=== PATIENT | female | born 1985 | race Caucasian/White ===

== ENCOUNTER 2023-05-22 11:26 | Emergency (ER) | payer OTHER ==
[2023-05-22 11:54] VITALS: BP 110/71; PULSE 85; RESP 16; TEMP 98.6; BMI 30.2
[2023-05-22 13:18] LABS: HCG,QUALITATIVE URINE Positive
[2023-05-22 13:21] LABS: EPI CELLS >36 /uL (0-25.1); HYALINE CASTS 0 /uL (0-3.1); PH,URINE 5.5 (5.0-8.0); URINE APPEARANCE CLOUDY; URINE BACTERIA 2486 /uL (0-1359); URINE BILIRUBIN NEGATIVE (NEGATIVE); URINE COLOR YELLOW; URINE GLUCOSE (UA) NEGATIVE (NEGATIVE); URINE KETONE NEGATIVE (NEGATIVE); URINE LEUK ESTERASE TRACE (NEGATIVE); URINE NITRITE NEGATIVE (NEGATIVE); URINE PROTEIN NEGATIVE (NEGATIVE); URINE UROBILINOGEN 0.2 mg/dL (0.2-1.0); URINE WBC 11 /uL (0-25.8)
[2023-05-22 13:23] LABS: URINE RBC 20 /uL (0-23.9)
[2023-05-22 13:38] LABS: BASO % 0.7 % (0-2.0); EOS % 1.2 % (0-4.5); HEMATOCRIT 38.9 % (32.4-45.2); HEMOGLOBIN 12.8 GM/dL (10.7-15.3); LYMPH % 24.2 % (8-40); MCHC 32.9 g/dl (32.0-36.0); MEAN CELL VOLUME 88.2 fl (80-96); MEAN PLT VOLUME 8.4 fl (7.5-11.1); MONO % 7.3 % (3.8-10.2); NEUT % 66.6 % (42.8-82.8); PLATELET COUNT 264 10^3/uL (134-434); RBC 4.41 M/mm3 (3.60-5.2); WHITE BLOOD COUNT 7.2 K/mm3 (4.0-10.0)
[2023-05-22 13:59] LABS: POTASSIUM 4.2 mmol/L (3.5-5.1)
[2023-05-22 14:02] LABS: ALBUMIN 3.6 g/dl (3.4-5.0)
[2023-05-22 14:05] LABS: CREATININE 0.5 mg/dL (0.55-1.3)
[2023-05-22 14:06] LABS: BILIRUBIN,TOTAL 0.2 mg/dL (0.2-1)
[2023-05-22 14:07] LABS: TOT PROT 7.2 g/dl (6.4-8.2)
[2023-05-22 14:15] LABS: CALCIUM 8.5 mg/dL (8.5-10.1)
== END 2023-05-22 16:18 | disposition home or self-care (01) ==
LOC: JER 11:26
DX: O26.891 Other specified pregnancy related conditions, first trimester (principal); R10.30 Lower abdominal pain, unspecified; R11.0 Nausea; M54.50 Low back pain, unspecified; Z3A.01 Less than 8 weeks gestation of pregnancy
CPT/HCPCS: 36415; 76801-TC; 80053; 81003; 84702; 84703; 85025; 99284-25